=== PATIENT | male | born 1980 | race Caucasian/White ===

== ENCOUNTER 2017-08-04 13:07 | Emergency (ER) | payer OTHER ==
[~2017-08-04] VITALS: Ht 185.4 cm; Wt 121.7 kg
[~2017-08-04 13:07] MED LIST: CLIN1CAP5 PO; LORTA5 PO; SULF1TAB47 PO; Z.0.NO CURRENT MEDS
[2017-08-04] MEDS ORDERED: IOHEXOL 350 MG/ML 10 ML VIAL (for RAD DIAG) IVCONTRAST ONE ×2 (13:08→15:15)
[2017-08-04 13:16] VITALS: BP 158/88; PULSE 105; RESP 20; TEMP 99.1; O2SAT 98
[2017-08-04 14:40] LABS: AUTOMATED NEUTROPHIL # 7.1 TH/MM3 (1.8-7.7); BASOPHIL # 0.3 TH/MM3 (0-0.2); BASOPHIL % 3.4 % (0.0-2.0); EOSINOPHIL # 0.1 TH/MM3 (0-0.4); EOSINOPHIL % 0.6 % (0.0-4.0); HEMATOCRIT 47.6 % (39.0-51.0); HEMO FLAGS DIFF FINAL; LYMPH % 20.8 % (9.0-44.0); LYMPHOCYTE # 2.1 TH/MM3 (1.0-4.8); MEAN CELL VOLUME 88.2 FL (80.0-100.0); MEAN CORPUSCULAR HEMOGLOBIN 30.6 PG (27.0-34.0); MEAN CORPUSCULAR HGB CONC 34.6 % (32.0-36.0); MONO % 6.1 % (0.0-8.0); NEUT % 69.1 % (16.0-70.0); PLATELET COUNT 161 TH/MM3 (150-450); RED BLOOD COUNT 5.39 MIL/MM3 (4.50-5.90); RED CELL DISTRIBUTION WIDTH 11.9 % (11.6-17.2); WHITE BLOOD COUNT 10.1 TH/MM3 (4.0-11.0)
[2017-08-04 14:49] LABS: CHLORIDE 99 MEQ/L (98-107); POTASSIUM 3.1 MEQ/L (3.5-5.1); SODIUM (NA) 136 MEQ/L (136-145)
--- NOTE | 2017-08-04 14:53 | PD ---
HPI Chief Complaint: ENT Complaint Time Seen by Provider: 14:06 Travel History International Travel<30 days: No Contact w/Intl Traveler<30days: No Traveled to known affect area: No History of Present Illness HPI This is a 36-year-old male who presents to the emergency department with 3 days of increasing swelling of his left ear, constant, severe associated with some yellow drainage and moderate severity pain. He has a history of MRSA and has had a couple ear infections in different parts of his body but never his ear before. He denies any fevers or chills. He denies any history of IV drug use. PFSH Past Medical History Diminished Hearing: No Influenza Vaccination: No Past Surgical History Appendectomy: Yes Social History Alcohol Use: Yes (soc) Tobacco Use: No Substance Use: No Allergies-Medications (Allergen,Severity, Reaction): Coded Allergies: cat dander (Unverified Allergy, Severe, Itching, 08/04/17) *MDRO Multi-Drug Resistant Organism (Verified Allergy, Unknown, 08/04/17) MRSA Uncoded Allergies: [employer] ANT[employer]IC OINTMENT WITH PAIN RELIEF (Adverse Reaction, Severe, REDNESS & INFLAMMATION, 10/23/12) SUN (Adverse Reaction, Unknown, HIVES, 07/05/17) Reported Meds & Prescriptions Reported Meds & Active Scripts Active No Active Prescriptions or Reported Medications Review of Systems Except as stated in HPI: all other systems reviewed are Neg Physical Exam Narrative GENERAL:Well appearing, no acute distress SKIN: Focused skin assessment warm and dry. HEAD: Atraumatic. Normocephalic. EYES: Pupils equal and round. No injection or drainage. ENT: Impressive swelling of the left auricle with a fluctuant area with some scant purulent drainage superior to the bishop helix. There is erythema and swelling of the entire auricle and there is some tenderness of the mastoid. Tympanic membrane is normal in appearance and the ear canal is normal. NECK: Trachea midline. CARDIOVASCULAR: Regular rate and rhythm. No murmur appreciated. RESPIRATORY: Clear to auscultation. Breath sounds equal bilaterally. GASTROINTESTINAL: Abdomen soft, non-tender, nondistended. MUSCULOSKELETAL: No obvious deformities. NEUROLOGICAL: Awake and alert. No obvious cranial nerve deficits. Moving all extremities. PSYCHIATRIC: Appropriate mood and affect; insight and judgment normal. Data Data Last Documented VS Vital Signs Date Time Temp Pulse Resp B/P (MAP) Pulse Ox O2 Delivery O2 Flow Rate FiO2 08/04/17 13:16 99.1 105 20 158/88 (111) 98 Orders Orders Complete Blood Count With Diff (08/04/17 14:11) Comprehensive Metabolic Panel (08/04/17 14:11) ^ Insert Iv (08/04/17 14:11) Ct Temporal Bone W Iv Contrast (08/04/17 ) Labs Laboratory Tests Test 08/04/17 14:28 White Blood Count 10.1 TH/MM3 Red Blood Count 5.39 MIL/MM3 Hemoglobin 16.5 GM/DL Hematocrit 47.6 % Mean Corpuscular Volume 88.2 FL Mean Corpuscular Hemoglobin 30.6 PG Mean Corpuscular Hemoglobin Concent 34.6 % Red Cell Distribution Width 11.9 % Platelet Count 161 TH/MM3 Mean Platelet Volume 7.9 FL Neutrophils (%) (Auto) 69.1 % Lymphocytes (%) (Auto) 20.8 % Monocytes (%) (Auto) 6.1 % Eosinophils (%) (Auto) 0.6 % Basophils (%) (Auto) 3.4 % Neutrophils # (Auto) 7.1 TH/MM3 Lymphocytes # (Auto) 2.1 TH/MM3 Monocytes # (Auto) 0.6 TH/MM3 Eosinophils # (Auto) 0.1 TH/MM3 Basophils # (Auto) 0.3 TH/MM3 CBC Comment DIFF FINAL Differential Comment Blood Urea Nitrogen 4 MG/DL Creatinine 0.61 MG/DL Random Glucose 228 MG/DL Total Protein 8.1 GM/DL Albumin 3.6 GM/DL Calcium Level 8.8 MG/DL Alkaline Phosphatase 90 U/L Aspartate Amino Transf (AST/SGOT) 45 U/L Alanine Aminotransferase (ALT/SGPT) 78 U/L Total Bilirubin 1.2 MG/DL Sodium Level 136 MEQ/L Potassium Level 3.1 MEQ/L Chloride Level 99 MEQ/L Carbon Dioxide Level 27.5 MEQ/L Anion Gap 10 MEQ/L Estimat Glomerular Filtration Rate 148 ML/MIN [facility] Medical Decision Making Medical Screen Exam Complete: Yes Emergency Medical Condition: Yes Interpretation(s) Temperature is 99.1, tachycardic, hypertensive No leukocytosis Hypokalemia Hyperglycemia Differential Diagnosis Mastoiditis, abscess, sepsis Narrative Course This is a 36-year-old male who presents to the emergency department with swelling of his left ear. On exam he has what appears to be an abscess immediately superior to the bishop helix. He also has some tenderness along the mastoid process. Labs are obtained which are reassuring with no leukocytosis. CT will be obtained to evaluate for underlying mastoiditis or deeper space infection. If reassuring I think we should discuss with ear nose and throat incision and drainage. Scripts No Active Prescriptions or Reported Meds Kirsten Mathias MD Aug 04, 2017 14:53
[2017-08-04 14:54] LABS: ANION GAP 10 MEQ/L (5-15); BICARBONATE 27.5 MEQ/L (21.0-32.0); BLOOD UREA NITROGEN 4 MG/DL (7-18)
[2017-08-04 14:57] LABS: ALT (GPT) 78 U/L (12-78); AST (GOT) 45 U/L (15-37); GLOMERULAR FILTRATION RATE 148 ML/MIN (>89)
[2017-08-04 14:58] LABS: TOTAL BILIRUBIN ADULT 1.2 MG/DL (0.2-1.0)
[2017-08-04 15:00] LABS: ALKALINE PHOSPHATASE 90 U/L (45-117)
[2017-08-04] MEDS ORDERED: KETOROLAC TROMETHAMINE 30 MG/ML (IVP) VIAL IV PUSH ONE (16:00)
--- NOTE | 2017-08-04 16:11 | PD ---
Physical Exam Narrative Received sign out from previous team to follow up CT scan. 36yo M with history of MRSA here with swelling and pain in left ear for 3 days. There is diffuse edema and erythema in left helix. No edema in external ear canal. TM wnl. It is earlobe sparing. Labs reviewed, no leukocytosis. Mild hypokalemia at 3.1, replaced orally. Glucose elevated at 228. CT temporal bone showed diffuse soft tissue thickening of external auditory canal and base of the ear. No focal drainable abscess is evident. Findings would suggest an external otitis. I discussed the case with ENT nurse monitoring Dr. Laird and he said that it sounds like chondritis and recommends cipro 500mg BID and medrol dose bree and follow up with him as outpatient in the office. I gave pt the first dose of cipro here. He agrees with plan. Return precautions given. Data Data Last Documented VS Vital Signs Date Time Temp Pulse Resp B/P (MAP) Pulse Ox O2 Delivery O2 Flow Rate FiO2 08/04/17 13:16 99.1 105 20 158/88 (111) 98 Orders Orders Complete Blood Count With Diff (08/04/17 14:11) Comprehensive Metabolic Panel (08/04/17 14:11) ^ Insert Iv (08/04/17 14:11) Ct Temporal Bone W Iv Contrast (08/04/17 ) Ketorolac Inj (Toradol Inj) (08/04/17 16:00) Iohexol 350 Inj (Omnipaque 350 Inj) (08/04/17 13:08) Potassium Chloride (Kcl) (08/04/17 16:15) Ciprofloxacin (Cipro) (08/04/17 17:00) Labs Laboratory Tests Test 08/04/17 14:28 White Blood Count 10.1 TH/MM3 Red Blood Count 5.39 MIL/MM3 Hemoglobin 16.5 GM/DL Hematocrit 47.6 % Mean Corpuscular Volume 88.2 FL Mean Corpuscular Hemoglobin 30.6 PG Mean Corpuscular Hemoglobin Concent 34.6 % Red Cell Distribution Width 11.9 % Platelet Count 161 TH/MM3 Mean Platelet Volume 7.9 FL Neutrophils (%) (Auto) 69.1 % Lymphocytes (%) (Auto) 20.8 % Monocytes (%) (Auto) 6.1 % Eosinophils (%) (Auto) 0.6 % Basophils (%) (Auto) 3.4 % Neutrophils # (Auto) 7.1 TH/MM3 Lymphocytes # (Auto) 2.1 TH/MM3 Monocytes # (Auto) 0.6 TH/MM3 Eosinophils # (Auto) 0.1 TH/MM3 Basophils # (Auto) 0.3 TH/MM3 CBC Comment DIFF FINAL Differential Comment Blood Urea Nitrogen 4 MG/DL Creatinine 0.61 MG/DL Random Glucose 228 MG/DL Total Protein 8.1 GM/DL Albumin 3.6 GM/DL Calcium Level 8.8 MG/DL Alkaline Phosphatase 90 U/L Aspartate Amino Transf (AST/SGOT) 45 U/L Alanine Aminotransferase (ALT/SGPT) 78 U/L Total Bilirubin 1.2 MG/DL Sodium Level 136 MEQ/L Potassium Level 3.1 MEQ/L Chloride Level 99 MEQ/L Carbon Dioxide Level 27.5 MEQ/L Anion Gap 10 MEQ/L Estimat Glomerular Filtration Rate 148 ML/MIN MDM Supervised Visit with NICHOLAS: No Diagnosis Primary Impression: Chondritis Referrals: Alan Laird MD call for appointment Chondritis Patient Instructions: General Instructions Departure Forms: Tests/Procedures Additional Instruction: Please follow up with Dr. Laird as soon as possible. Please take medication as instructed and return to the ED if symptoms worsen. Med/Other Pt SpecificInfo: Prescription(s) given Scripts Acetaminophen (Tylenol) 325 Mg Tab 650 MG PO Q6H Y for PAIN SCALE 1 TO 4, #20 TAB 0 Refills Prov: Beatriz Baca DO 08/04/17 Methylprednisolone Dosepak (Medrol Dosepak) 4 Mg Dspk 4 MG PO DIRECTED, #1 DSPK 0 Refills Per Pharmacist direction Prov: Beatriz Baca DO 08/04/17 Ciprofloxacin (Ciprofloxacin) 500 Mg Tab 500 MG PO BID for Infection for 7 Days, #14 TAB 0 Refills Prov: Beatriz Baca DO 08/04/17 Disposition: 01 DISCHARGE HOME Condition: Stable Beatriz Baca DO Aug 04, 2017 16:11
[2017-08-04] MEDS ORDERED: POTASSIUM CHLORIDE 20 MEQ CONTROLLED RELEASE TAB PO ONE (16:15)
--- NOTE | 2017-08-04 16:17 | RADRPT ---
EXAM DATE/TIME: 08/04/2017 15:15 [place] COMPARISON: No previous studies available for comparison. INDICATIONS : Left ear pain, redness and drainage. Cephalgia. IV CONTRAST: 50 cc Omnipaque 350 (iohexol) IV RADIATION DOSE: 97.43 CTDIvol (mGy) MEDICAL HISTORY : None SURGICAL HISTORY : Appendectomy. ENCOUNTER: Initial ACUITY: 3 days PAIN SCALE: 7/10 LOCATION: Left cranial TECHNIQUE: Volumetric scanning of the temporal bone was performed. Using automated exposure control and adjustm ent of the mA and/or kV according to patient size, radiation dose was kept as low as reasonably achie vable to obtain optimal diagnostic quality images. DICOM format image data is available electronicall y for review and comparison. FINDINGS: OSSICLES: The ossicles are intact. The oval window niche is intact. MASTOID AIR CELLS: Well aerated. No sclerotic or opacified air cells are seen. The aditus is intact. MIDDLE EAR: The epitympanum and hypotympanum are intact. Prussak's space and scutum are intact. The oval and rou nd window is intact. LABYRINTH: The cochlea and semicircular canals are normal in configuration without sclerosis. INTERNAL ACOUSTIC CANAL: Normal in size without erosion. The cerebellar-pontine angle is intact. JUGULAR FOSSA: Normal in size and position. FACIAL CANAL: The tympanic, genu and descending portions are intact. EXTERNAL ACOUSTIC CANAL: The bony and cartilaginous portions are intact. There is fairly diffuse soft tissue thickening of the external auditory canal. No focal abscess is seen. CONCLUSION: 1. Diffuse soft tissue thickening of the external auditory canal and base of the ear. No focal draina ble abscess is evident. Findings would suggest an external otitis. 2. The left temporal bone and internal ear are intact. Flavio Delatorre MD on August 04, 2017 at 16:12 Board Certified Radiologist. This report was verified electronically.
[2017-08-04] MEDS ORDERED: CIPROFLOXACIN 500 MG TAB PO ONE (17:00)
[2017-08-04] MEDS ORDERED: CIPR500T2 PO (17:14)
[2017-08-04] MEDS ORDERED: MEDR4PAK PO (17:14)
[2017-08-04] MEDS ORDERED: TYLE325T PO (17:15)
[2017-08-04 17:17] VITALS: RESP 18
[2017-08-04 17:37] VITALS: BP 144/78
== END 2017-08-04 17:39 | disposition home or self-care (01) ==
LOC: PHED 13:07
DX: H61.032 Chondritis of left external ear (principal)
CPT/HCPCS: 70481; 80053; 85025; 96374; 99285; J1885; Q9967

== ENCOUNTER 2017-08-10 10:55 | Inpatient (IN) | payer OTHER ==
[~2017-08-10] VITALS: Ht 185.4 cm; Wt 127.0 kg
[~2017-08-10 10:55] MED LIST changes: +CIPR500T2 PO; -CLIN1CAP5 PO; -LORTA5 PO; +MEDR4PAK PO; -SULF1TAB47 PO; +TYLE325T PO; -Z.0.NO CURRENT MEDS
[2017-08-10 11:05] VITALS: BP 156/106; PULSE 89; RESP 16; TEMP 98.6; O2SAT 99
[2017-08-10 11:25] VITALS: BP 141/99; PULSE 84; RESP 16; TEMP 98.7; O2SAT 97
--- NOTE | 2017-08-10 11:28 | PD ---
HPI Chief Complaint: Skin Problem Time Seen by Provider: 11:22 Travel History International Travel<30 days: No Contact w/Intl Traveler<30days: No Traveled to known affect area: No History of Present Illness HPI This is a 36-year-old male who presents today with complaints of worsening swelling and pain and redness of his left ear. She was seen previously and diagnosed with an outer ear infection. He was started on ciprofloxacin. He reports that he thought initially got better however last several days and worse. He reports it's gotten more inflamed, swollen and now he has drainage from the posterior ear as well as the inner ear. There is no reported fevers, chills. There is no reported stiff neck. There is no reported photophobia. He does have history of MRSA infection. He was started on ciprofloxacin at the recommendation of the ENT physician. PFSH Past Medical History Diminished Hearing: No ?: Not Past Surgical History Appendectomy: Yes Social History Alcohol Use: Yes (soc) Tobacco Use: No Substance Use: No Allergies-Medications (Allergen,Severity, Reaction): Coded Allergies: cat dander (Unverified Allergy, Severe, Itching, 08/04/17) *MDRO Multi-Drug Resistant Organism (Verified Allergy, Unknown, 08/04/17) MRSA Uncoded Allergies: [employer] ANT[employer]IC OINTMENT WITH PAIN RELIEF (Adverse Reaction, Severe, REDNESS & INFLAMMATION, 10/23/12) SUN (Adverse Reaction, Unknown, HIVES, 07/05/17) Reported Meds & Prescriptions Reported Meds & Active Scripts Active Tylenol (Acetaminophen) 325 Mg Tab 650 Mg PO Q6H PRN Medrol Dosepak (Methylprednisolone) 4 Mg Dspk 4 Mg PO DIRECTED Per Pharmacist direction Ciprofloxacin (Ciprofloxacin HCl) 500 Mg Tab 500 Mg PO BID 7 Days Review of Systems Except as stated in HPI: all other systems reviewed are Neg General / Constitutional: No: Fever, Chills HENT: Positive: Ear Discharge, Earache, No: Headaches, Neck Stiffness, Neck Pain Cardiovascular: No: Chest Pain or Discomfort, Palpitations Respiratory: No: Cough, Shortness of Breath Gastrointestinal: No: Nausea, Vomiting, Abdominal Pain Genitourinary: No: Incontinence Musculoskeletal: No: Weakness, Pain Neurologic: No: Weakness, Dizziness, Headache, Sensory Disturbance Physical Exam Narrative GENERAL: Well-developed well-nourished male with obvious redness to his left kortney-auricular area and swollen left ear. SKIN: Focused skin assessment warm/dry. HEAD: Atraumatic. Normocephalic. EYES: Pupils equal and round. No scleral icterus. No injection or drainage. ENT: No nasal bleeding or discharge. Mucous membranes pink and moist. Patient has edematous left ear that is red. There is drainage in the posterior outer ear as well as in her ear. It is tender to the touch. NECK: Trachea midline. No JVD. CARDIOVASCULAR: Regular rate and rhythm. No murmur appreciated. RESPIRATORY: No accessory muscle use. Clear to auscultation. Breath sounds equal bilaterally. GASTROINTESTINAL: Abdomen soft, non-tender, nondistended. Hepatic and splenic margins not palpable. MUSCULOSKELETAL: No obvious deformities. No clubbing. No cyanosis. No edema. NEUROLOGICAL: Awake and alert. No obvious cranial nerve deficits. Motor grossly within normal limits. Normal speech. PSYCHIATRIC: Appropriate mood and affect; insight and judgment normal. Data Data Last Documented VS Vital Signs Date Time Temp Pulse Resp B/P (MAP) Pulse Ox O2 Delivery O2 Flow Rate FiO2 08/10/17 11:05 98.6 89 16 156/106 (123) 99 MDM Medical Decision Making Medical Screen Exam Complete: Yes Emergency Medical Condition: Yes Differential Diagnosis Cellulitis versus mastoiditis versus filled outpatient oral antibiotic treatment. Narrative Course 36-year-old male with a history of previous MRSA, presents today with complaints of worsening pain, swelling, drainage from his left ear. The patient has obvious cellulitis of the left ear including the periauricular area. There is drainage noted. This is been cultured as well as blood cultures. He's been started on vancomycin. He'll be admitted to the hospital for failed outpatient antibiotic treatment. There is a call out to the [facility] hospitalist service. Diagnosis Primary Impression: Cellulitis of left ear Additional Impression: failed outpatient antibiotics. Damian Plascencia MD Aug 10, 2017 11:28
[2017-08-10] MEDS ORDERED: VANCOMYCIN INJ 1,000 MG in SODIUM CHLOR 0.9% 250 ML INJ 250 ML IV ONE (11:30)
[2017-08-10 11:52] LABS: AUTOMATED NEUTROPHIL # 10.4 TH/MM3 (1.8-7.7); BASOPHIL # 0.2 TH/MM3 (0-0.2); BASOPHIL % 1.8 % (0.0-2.0); EOSINOPHIL % 0.3 % (0.0-4.0); LYMPH % 13.3 % (9.0-44.0); LYMPHOCYTE # 1.7 TH/MM3 (1.0-4.8); MEAN CELL VOLUME 88.3 FL (80.0-100.0); MEAN CORPUSCULAR HEMOGLOBIN 29.7 PG (27.0-34.0); MEAN CORPUSCULAR HGB CONC 33.6 % (32.0-36.0); MONO % 4.5 % (0.0-8.0); NEUT % 80.1 % (16.0-70.0); PLATELET COUNT 238 TH/MM3 (150-450); RED BLOOD COUNT 5.55 MIL/MM3 (4.50-5.90); RED CELL DISTRIBUTION WIDTH 12.2 % (11.6-17.2); WHITE BLOOD COUNT 12.9 TH/MM3 (4.0-11.0)
[2017-08-10 11:53] LABS: HEMO FLAGS DIFF FINAL
[2017-08-10 12:00] LABS: POTASSIUM 3.6 MEQ/L (3.5-5.1)
[2017-08-10] MEDS ORDERED: ONDANSETRON HCL 4 MG/2 ML VIAL IVP ONE (12:00)
[2017-08-10] MEDS ORDERED: HYDROmorphone HCL PF 1 MG/ML VIAL IVS ONE (12:00)
[2017-08-10 12:03] LABS: BICARBONATE 25.8 MEQ/L (21.0-32.0)
[2017-08-10] MEDS ORDERED: NALOXONE HCL 0.4 MG/ML AMP IV PUSH PRN (12:30)
[2017-08-10 12:54] VITALS: BP 166/102
[2017-08-10 14:10] VITALS: BP 145/79; PULSE 78; RESP 17; TEMP 98; O2SAT 96
[2017-08-10] MEDS ORDERED: HYDROmorphone HCL PF 1 MG/ML VIAL IV PUSH ONE (14:30)
[2017-08-10] MEDS ORDERED: KETOROLAC TROMETHAMINE 60 MG/2 ML (IM) VIAL IM PRN (14:30)
[2017-08-10 16:00] VITALS: BP 143/79; PULSE 80; RESP 18; TEMP 97.7; O2SAT 98
[2017-08-10] MEDS ORDERED: VANCOMYCIN INJ 1,000 MG in SODIUM CHLOR 0.9% 250 ML INJ 250 ML IV SCH (16:00)
[2017-08-10] MEDS ORDERED: SODIUM CHLOR 0.9% 1000 ML INJ 1,000 ML IV ONE (16:00)
[2017-08-10] MEDS ORDERED: Vancomycin Consult Pharmacy 1 EA OTHER SCH (16:00)
--- NOTE | 2017-08-10 16:03 | HHI.HP ---
HPI Service [facility] Primary Care Physician No Primary Care Physician Admission Diagnosis left ear cellulits, failed outpatient abx, uncontrolled hyperglycemi Diagnoses: Chief Complaint: Left ear pain Travel History International Travel<30 Days: No Contact w/Intl Traveler <30 Da: No Traveled to Known Affected Are: No History of Present Illness Patient is a very pleasant 36-year-old gentleman with minimal past medical history who comes in complaining of at least 10 days of left ear pain. He did have outpatient procedure for ciprofloxacin which she took all but 1 pill. He came here for evaluation because increased pain, swelling and tenderness of the ear. The ears grossly red and beefy and there is some edematous fluctuance underneath the ear lobe and in the posterior or particular area. Patient has some lymphadenopathy in the cervical chains and the ear is with associated 10 out of 10 pain. The pain is improved with Dilaudid. Patient admitted to the hospital due to increased changes and likely a rectal abscess and X otitis externa. Review of Systems Constitutional: DENIES: Diaphoretic episodes, Fatigue, Fever, Weight gain, Weight loss, Chills, Dizziness, Change in appetite, Night Sweats Ears, nose, mouth, throat: COMPLAINS OF: Ear Pain, DENIES: Tinnitus, Hearing loss, Vertigo, Nasal discharge, Oral lesions, Throat pain, Hoarseness, Running Nose, Epistaxis, Sinus Pain, Toothache, Odynophagia Cardiovascular: DENIES: Chest pain, Palpitations, Syncope, Dyspnea on Exertion , PND, Lower Extremity Edema, Orthopnea, Claudication Gastrointestinal: DENIES: Abdominal pain, Black stools, Bloody stools, Constipation, Diarrhea, Nausea, Vomiting, Difficulty Swallowing, Anorexia Genitourinary: DENIES: Sexual dysfunction, Urinary frequency, Urinary incontinence, Urgency, Hematuria, Dysuria, Nocturia, Penile Discharge, Testicular Pain, Testicular Swelling Musculoskeletal: DENIES: Joint pain, Muscle aches, Stiffness, Joint Swelling, Back pain, Neck pain Integumentary: DENIES: Abnormal pigmentation, Nail changes, Pruritus, Rash Hematologic/lymphatic: DENIES: Bruising, Lymphadenopathy Immunologic/allergic: DENIES: Eczema, Urticaria Neurologic: DENIES: Abnormal gait, Headache, Localized weakness, Paresthesias, Seizures, Speech Problems, Tremor, Poor Balance Psychiatric: DENIES: Anxiety, Confusion, Mood changes, Depression, Hallucinations, Agitation, Suicidal Ideation, Homicidal Ideation, Delusions Except as stated in HPI: all other systems reviewed are Neg Past Family Social History Past Medical History Denies Past Surgical History appendectomy Reported Medications reviewed in the medical record, recent Cipro Allergies: Coded Allergies: cat dander (Unverified Allergy, Severe, Itching, 08/10/17) *MDRO Multi-Drug Resistant Organism (Verified Allergy, Unknown, 08/10/17) MRSA Uncoded Allergies: [employer] ANT[employer] OINTMENT WITH PAIN RELIEF (Adverse Reaction, Severe, REDNESS & INFLAMMATION, 08/10/17) . SUN (Adverse Reaction, Unknown, HIVES, 08/10/17) . Active Ordered Medications Reviewed in the medical record Family History Mother is healthy, father had melanoma and past Physical Exam Vital Signs Vital Signs Date Time Temp Pulse Resp B/P (MAP) Pulse Ox O2 Delivery O2 Flow Rate FiO2 08/10/17 15:44 20 08/10/17 14:10 98.0 78 17 145/79 (101) 96 08/10/17 12:54 78 16 166/102 (123) 97 08/10/17 12:46 16 08/10/17 11:25 16 08/10/17 11:25 98.7 84 16 141/99 (113) 97 Room Air 08/10/17 11:05 98.6 89 16 156/106 (123) 99 Physical Exam GENERAL: This is a well-nourished, well-developed patient, in no apparent distress. SKIN: No rashes, ecchymoses or lesions. Cool and dry. HEAD: Atraumatic. Normocephalic. No temporal or scalp tenderness. EYES: Pupils equal round and reactive. Extraocular motions intact. No scleral icterus. No injection or drainage. ENT: Left ear 2 times normal size, beefy-red, with posterior nodularity and edematous fluctuance grossly tender. Nose without bleeding, purulent drainage or septal hematoma. Throat without erythema, tonsillar hypertrophy or exudate. Uvula midline. Airway patent. NECK: Trachea midline. No JVD or lymphadenopathy. Supple, nontender, no meningeal signs. CARDIOVASCULAR: Regular rate and rhythm without murmurs, gallops, or rubs. RESPIRATORY: Clear to auscultation. Breath sounds equal bilaterally. No wheezes , rales, or rhonchi. GASTROINTESTINAL: Abdomen soft, non-tender, nondistended. No hepato-splenomegaly , or palpable masses. No guarding. MUSCULOSKELETAL: Extremities without clubbing, cyanosis, or edema. No joint tenderness, effusion, or edema noted. No calf tenderness. Negative Homans sign bilaterally. NEUROLOGICAL: Awake and alert. Cranial nerves II through XII intact. Motor and sensory grossly within normal limits. Five out of 5 muscle strength in all muscle groups. Normal speech. Laboratory Laboratory Tests Test 08/10/17 11:45 08/10/17 11:52 White Blood Count 12.9 Red Blood Count 5.55 Hemoglobin 16.5 Hematocrit 49.0 Mean Corpuscular Volume 88.3 Mean Corpuscular Hemoglobin 29.7 Mean Corpuscular Hemoglobin Concent 33.6 Red Cell Distribution Width 12.2 Platelet Count 238 Mean Platelet Volume 7.6 Neutrophils (%) (Auto) 80.1 Lymphocytes (%) (Auto) 13.3 Monocytes (%) (Auto) 4.5 Eosinophils (%) (Auto) 0.3 Basophils (%) (Auto) 1.8 Neutrophils # (Auto) 10.4 Lymphocytes # (Auto) 1.7 Monocytes # (Auto) 0.6 Eosinophils # (Auto) 0.0 Basophils # (Auto) 0.2 CBC Comment DIFF FINAL Differential Comment Blood Urea Nitrogen 9 Creatinine 0.69 Random Glucose 280 Calcium Level 8.9 Sodium Level 135 Potassium Level 3.6 Chloride Level 101 Carbon Dioxide Level 25.8 Anion Gap 8 Estimat Glomerular Filtration Rate 128 Lactic Acid Level 1.5 Date/Time Source Procedure Growth Status 08/10/17 11:52 Blood Peripheral Aerobic Blood Culture Pending Received 08/10/17 11:52 Blood Peripheral Anaerobic Blood Culture Pending Received 08/10/17 11:55 Wound Other Gram Stain Pending Worksheet 08/10/17 11:55 Wound Other Wound Culture Pending Worksheet Result Diagram: 08/10/17 1145 08/10/17 1145 Caprini VTE Risk Assessment Caprini VTE Risk Assessment: No/Low Risk (score <= 1) Caprini Risk Assessment Model Point Value = 1 Point Value = 2 Point Value = 3 Point Value = 5 Age 41-60 Minor surgery BMI > 25 kg/m2 Swollen legs Varicose veins or History of unexplained or recurrent spontaneous Oral contraceptives or hormone replacement Sepsis (< 1 month) Serious lung disease, including pneumonia (< 1 month) Abnormal pulmonary function Acute myocardial infarction Congestive heart failure (< 1 month) History of inflammatory bowel disease Medical patient at bed rest Age 61-74 Arthroscopic surgery Major open surgery (> 45 min) Laparoscopic surgery (> 45 min) Malignancy Confined to bed (> 72 hours) Immobilizing plaster cast Central venous access Age >= 75 History of VTE Family history of VTE Factor V Leiden Prothrombin [id number] Lupus anticoagulant Anticardiolipin antibodies Elevated serum homocysteine Heparin-induced thrombocytopenia Other congenital or acquired thrombophilia Stroke (< 1 month) Elective arthroplasty Hip, pelvis, or leg fracture Acute spinal cord injury (< 1 month) Prophylaxis Regimen Total Risk Factor Score Risk Level Prophylaxis Regimen 0-1 Low Early ambulation 2 Moderate Order ONE of the following: *Sequential Compression Device (SCD) *Heparin 5000 units SQ BID 3-4 Higher Order ONE of the following medications: *Heparin 5000 units SQ TID *Enoxaparin/Lovenox 40 mg SQ daily (WT < 150 kg, CrCl > 30 mL/min) *Enoxaparin/Lovenox 30 mg SQ daily (WT < 150 kg, CrCl > 10-29 mL/min) *Enoxaparin/Lovenox 30 mg SQ BID (WT < 150 kg, CrCl > 30 mL/min) AND/OR *Sequential Compression Device (SCD) 5 or more Highest Order ONE of the following medications: *Heparin 5000 units SQ TID (Preferred with Epidurals) *Enoxaparin/Lovenox 40 mg SQ daily (WT < 150 kg, CrCl > 30 mL/min) *Enoxaparin/Lovenox 30 mg SQ daily (WT < 150 kg, CrCl > 10-29 mL/min) *Enoxaparin/Lovenox 30 mg SQ BID (WT < 150 kg, CrCl > 30 mL/min) AND *Sequential Compression Device (SCD) Assessment and Plan Problem List: (1) Cellulitis of left ear ICD Code: H60.12 - Cellulitis of left external ear Status: Acute Plan: Rule out abscess, continue with vancomycin Concerning for abscess development. ENT today and if possible I&D pain control IV dialuadid, toradol (2) Hyperglycemia ICD Code: R73.9 - Hyperglycemia, unspecified Plan: Likely patient has underlying in diabetes mellitus type 2, previous and diagnosed, will check hemoglobin A1c, continue surveillance Physician Certification 2 Midnight Certification Type: Admission for Inpatient Services Order for Inpatient Services The services are ordered in accordance with Medicare regulations or non- Medicare payer requirements, as applicable. In the case of services not specified as inpatient-only, they are appropriately provided as inpatient services in accordance with the 2-midnight benchmark. Estimated LOS (days): 3 3 days is the estimated time the patient will need to remain in the hospital, assuming treatment plan goals are met and no additional complications. Post-Hospital Plan: Home Elsie Coyle MD Aug 10, 2017 16:03
[2017-08-10] MEDS: CLINDAMYCIN INJ 600 MG in SODIUM CHLORIDE 0.9% INJ 100 ML IV SCH (17:02)
[2017-08-10] MEDS: HYDROmorphone HCL PF 2 MG/ML VIAL IVS PRN ×2 (17:03→20:54)
[2017-08-10] MEDS ORDERED: LIDOCAINE 1%/EPINEPHrine 1:100,000 SOLN 30 ML VIAL ONE (18:05)
[2017-08-10] MEDS ORDERED: HYDROmorphone HCL PF 2 MG/ML VIAL IV ONE (19:00)
[2017-08-10] MEDS ORDERED: LIDOCAINE 1%/EPINEPHrine 1:100,000 SOLN 30 ML VIAL OTHER ONE (19:00)
[2017-08-10 20:00] VITALS: BP 164/110; PULSE 89; RESP 20; TEMP 97.6; O2SAT 97
[2017-08-10] MEDS: MUPIROCIN 2% OINT 22 GM TUBE TOPICAL SCH (20:54)
[2017-08-10] MEDS: SODIUM CHLORIDE 0.9% FLUSH 10 ML FLUSH IV FLUSH SCH (20:54)
[2017-08-10 21:26] LABS: HEMOGLOBIN A1a 1.5 %; HEMOGLOBIN Ao 76.6 %; HEMOGLOBIN F 1.7 %; HEMOGLOBIN LA1C 3.2 %
[2017-08-10] MEDS: VANCOMYCIN INJ 1,500 MG in SODIUM CHLORID 0.9% 500 ML INJ 500 ML IV SCH (21:54)
[2017-08-11] VITALS: BP 161/105; PULSE 90; RESP 20; TEMP 98.1; O2SAT 96
[2017-08-11] MEDS: HYDROmorphone HCL PF 2 MG/ML VIAL IVS PRN ×6 (01:05→22:40)
[2017-08-11] MEDS: CLINDAMYCIN INJ 600 MG in SODIUM CHLORIDE 0.9% INJ 100 ML IV SCH ×4 (01:05→23:50)
[2017-08-11 04:00] VITALS: BP 145/102; PULSE 86
[2017-08-11 07:15] LABS: AUTOMATED NEUTROPHIL # 8.4 TH/MM3 (1.8-7.7); BASOPHIL # 0.1 TH/MM3 (0-0.2); BASOPHIL % 0.9 % (0.0-2.0); EOSINOPHIL # 0.1 TH/MM3 (0-0.4); EOSINOPHIL % 0.8 % (0.0-4.0); HEMATOCRIT 41.2 % (39.0-51.0); HEMO FLAGS DIFF FINAL; LYMPHOCYTE # 1.5 TH/MM3 (1.0-4.8); MEAN CELL VOLUME 89.7 FL (80.0-100.0); MEAN CORPUSCULAR HEMOGLOBIN 31.2 PG (27.0-34.0); MEAN CORPUSCULAR HGB CONC 34.8 % (32.0-36.0); MONO % 5.3 % (0.0-8.0); PLATELET COUNT 199 TH/MM3 (150-450); RED BLOOD COUNT 4.59 MIL/MM3 (4.50-5.90); RED CELL DISTRIBUTION WIDTH 12.3 % (11.6-17.2); WHITE BLOOD COUNT 10.7 TH/MM3 (4.0-11.0)
[2017-08-11 07:24] LABS: POTASSIUM 3.5 MEQ/L (3.5-5.1)
[2017-08-11 07:31] LABS: BICARBONATE 27.5 MEQ/L (21.0-32.0)
[2017-08-11 08:00] VITALS: BP 151/105; PULSE 90; RESP 18; TEMP 96.8; O2SAT 97
--- NOTE | 2017-08-11 08:39 | MB ---
cc: REJI LAUREN MD DATE OF CONSULTATION 08/10/17 CHIEF COMPLAINT Left ear infection. HISTORY OF PRESENT ILLNESS The salvador is a pleasant 36-year-old male with a 10 day worsening of left ear pain. He was previously seen for ear infection started on ciprofloxacin. He is taking the medications for almost 10 days with no definitive improvement. He does have a history of MRSA infection. Examination revealed a left swollen postauricular infection. There was diffuse swelling throughout the entire ear. The patient notes that he has had swelling in the past around the ear as well. No history of trauma to the ear or relapsing polychondritis in the past. The other head, neck exam was essentially benign. After prepping the left ear and injecting local anesthesia, a __18 gauge needle was used to aspirate approximately 4 cc of marcial purulence with immediate resolution of swelling and symptoms. The mastoid bone did not feel doughy at all. Fluid sent for culture and sensitivity. ASSESSMENT Auricular abscess. PLAN Recommend the patient continue the vancomycin that was started while awaiting culture results. Also recommend the patient use mupirocin ointment copiously over the ear twice a day and make sure that sugar levels are controlled as well. Available for further consultation. Reji Lauren MD CCP/EO /7:07 PM /8:29 AM MTDD
[2017-08-11] MEDS: MUPIROCIN 2% OINT 22 GM TUBE TOPICAL SCH ×2 (09:00→20:01)
[2017-08-11] MEDS: SODIUM CHLORIDE 0.9% FLUSH 10 ML FLUSH IV FLUSH SCH ×2 (09:08→20:01)
[2017-08-11] MEDS: VANCOMYCIN INJ 1,500 MG in SODIUM CHLORID 0.9% 500 ML INJ 500 ML IV SCH ×2 (10:24→21:33)
[2017-08-11 11:52] VITALS: BP 146/98; PULSE 85; RESP 20; TEMP 96.3; O2SAT 96
--- NOTE | 2017-08-11 12:41 | HHI.PR ---
Subjective Remarks PATIENT SEEN AND EVALUATED FOR LEFT PERIAURICULAR ABSCESS, NEW ONSET DIABETES AND LIKELY HYPERTENSION. Status post I&D at the bedside with about 5 mL of marcial pus per ENT. Cultures are pending. Patient tolerating IV vancomycin and clindamycin without difficulty. Increased swelling on the left side of the face today. Hemoglobin A1c 11.6 Objective Vitals Vital Signs Date Time Temp Pulse Resp B/P (MAP) Pulse Ox O2 Delivery O2 Flow Rate FiO2 08/11/17 11:52 96.3 85 20 146/98 (114) 96 08/11/17 08:00 96.8 90 18 151/105 (120) 97 08/11/17 05:33 18 08/11/17 04:00 86 145/102 (116) 08/11/17 00:00 98.1 90 20 161/105 (123) 96 08/10/17 20:00 97.6 89 20 164/110 (128) 97 08/10/17 16:00 97.7 80 18 143/79 (100) 98 08/10/17 15:44 20 08/10/17 14:10 98.0 78 17 145/79 (101) 96 08/10/17 12:54 78 16 166/102 (123) 97 08/10/17 12:46 16 I/O 08/10/17 08/10/17 08/10/17 08/11/17 08/11/17 08/11/17 07:00 15:00 23:00 07:00 15:00 23:00 Intake Total 250 ml 1560 ml 644 ml Balance 250 ml 1560 ml 644 ml Intake Oral 1560 ml IV Total 250 ml 644 ml # Voids 7 # Bowel Movements 0 Result Diagram: 08/11/1752708/11/17527 Objective Remarks Left face grossly swollen with beefy erythematous ear and perirectal or tenderness, cervical chain lymphadenopathy appreciated GENERAL: This is a well-nourished, well-developed patient, in no apparent distress. CARDIOVASCULAR: Regular rate and rhythm without murmurs, gallops, or rubs. RESPIRATORY: Clear to auscultation. Breath sounds equal bilaterally. No wheezes , rales, or rhonchi. GASTROINTESTINAL: Abdomen soft, non-tender, nondistended. Normal active bowel sounds MUSCULOSKELETAL: Extremities without clubbing, cyanosis, or edema. NEURO: Alert & Oriented x4 to person, place, time, situation. Moves all ext x4 A/P Problem List: (1) Cellulitis of left ear ICD Code: H60.12 - Cellulitis of left external ear Status: Acute Plan: Secondary to abscess and cellulitis, continue empiric vancomycin and clindamycin Follow up cultures from I&D (previous history of MRSA) Continue IV Dilaudid, Toradol and will add Percocet as needed (2) Hyperglycemia ICD Code: R73.9 - Hyperglycemia, unspecified Plan: Patient has type 2 diabetes mellitus, hemoglobin A1c is over 11, continue with sliding scale, diabetic diet and education (3) Elevated BP without diagnosis of hypertension ICD Code: R03.0 - Elevated blood-pressure reading, without diagnosis of hypertension Plan: Patient likely has underlying hypertension, we will add Ti, check EKG Elsie Coyle MD Aug 11, 2017 12:41
[2017-08-11] MEDS ORDERED: DEXTROSE 50% IN WATER 50 ML VIAL(D50) IV PUSH PRN (12:45)
[2017-08-11] MEDS ORDERED: GLUCAGON 1 MG/ML VIAL OTHER PRN (12:45)
[2017-08-11] MEDS: LOSARTAN 50 MG TAB PO SCH (13:30)
[2017-08-11 16:00] VITALS: BP 156/104; PULSE 84; RESP 20; TEMP 98.1; O2SAT 98
[2017-08-11] MEDS: INSULIN ASPART SUPPLEMENTAL SCALE SQ SCH ×2 (16:52→21:00)
[2017-08-11] MEDS: oxyCODONE/ACETAMINOPHEN 7.5 MG/325 MG TAB PO PRN ×2 (16:58→21:33)
[2017-08-11 20:00] VITALS: BP 147/103; PULSE 88; RESP 20; TEMP 99.4; O2SAT 95
[2017-08-12] VITALS: BP 122/82; PULSE 76; RESP 20; TEMP 98.3; O2SAT 97
[2017-08-12] MEDS: HYDROmorphone HCL PF 2 MG/ML VIAL IVS PRN ×5 (02:55→19:44)
[2017-08-12] MEDS: oxyCODONE/ACETAMINOPHEN 7.5 MG/325 MG TAB PO PRN ×3 (04:49→18:44)
[2017-08-12 08:00] VITALS: BP 148/96; PULSE 91; RESP 19; TEMP 97.1; O2SAT 96
[2017-08-12] MEDS: MUPIROCIN 2% OINT 22 GM TUBE TOPICAL SCH ×2 (08:18→19:47)
[2017-08-12] MEDS: LOSARTAN 50 MG TAB PO SCH (08:18)
[2017-08-12] MEDS: SODIUM CHLORIDE 0.9% FLUSH 10 ML FLUSH IV FLUSH SCH ×2 (08:19→19:45)
[2017-08-12] MEDS: CLINDAMYCIN INJ 600 MG in SODIUM CHLORIDE 0.9% INJ 100 ML IV SCH ×2 (08:20→17:08)
[2017-08-12] MEDS: INSULIN ASPART SUPPLEMENTAL SCALE SQ SCH ×4 (08:48→20:45)
[2017-08-12] MEDS ORDERED: PHARMACY ORDERED LAB ONE (09:45)
--- NOTE | 2017-08-12 10:57 | PD.CONS ---
History of Present Illness Service Infectious disease Consult Requested By Dr Rachel Olmos Reason for Consult Left ear cellulitis/ abscess Primary Care Physician No Primary Care Physician Diagnoses: (1) Methicillin resistant Staphylococcus aureus infection (2) Abscess of left external ear (3) Cellulitis of left ear History of Present Illness Patient with a past h/o MRSA started having a swelling of his left ear - about 10 days ago and then he came to ER and was given Cipro but the ear got progressively worse and so came back to ER and was admitted. Patient also noted to have hyperglycemia and has a high Hemoglobin A1C so new onset of Diabetes. Patient has had a past h/o MRSA. Review of Systems Constitutional: COMPLAINS OF: Fever, DENIES: Weight loss, Chills Endocrine: DENIES: Heat/cold intolerance Eyes: DENIES: Diplopia, Eye pain, Double Vision Ears, nose, mouth, throat: COMPLAINS OF: Ear Pain, DENIES: Hearing loss, Odynophagia Respiratory: DENIES: Cough, Sputum production, Shortness of breath Cardiovascular: DENIES: Chest pain, Lower Extremity Edema Gastrointestinal: DENIES: Abdominal pain, Nausea, Vomiting Genitourinary: DENIES: Hematuria, Dysuria Musculoskeletal: DENIES: Joint pain, Joint Swelling, Back pain Integumentary: COMPLAINS OF: Abnormal pigmentation Hematologic/lymphatic: COMPLAINS OF: Lymphadenopathy Immunologic/allergic: DENIES: Urticaria Neurologic: DENIES: Headache, Paresthesias Psychiatric: DENIES: Confusion, Hallucinations Past Family Social History Allergies: Coded Allergies: cat dander (Unverified Allergy, Severe, Itching, 08/10/17) Uncoded Allergies: [employer] ANT[employer]IC OINTMENT WITH PAIN RELIEF (Adverse Reaction, Severe, REDNESS & INFLAMMATION, 08/10/17) . SUN (Adverse Reaction, Unknown, HIVES, 08/10/17) . Past Medical History Past Medical History MRSA infection repeatedly Past Surgical History appendectomy Reported Medications reviewed in the medical record, recent Cipro Allergies: Coded Allergies: cat dander (Unverified Allergy, Severe, Itching, 08/10/17) *MDRO Multi-Drug Resistant Organism (Verified Allergy, Unknown, 08/10/17) MRSA Uncoded Allergies: [employer] ANT[employer]IC OINTMENT WITH PAIN RELIEF (Adverse Reaction, Severe, REDNESS & INFLAMMATION, 08/10/17) . SUN (Adverse Reaction, Unknown, HIVES, 08/10/17) . Active Ordered Medications Reviewed in the medical record Family History Mother is healthy, father had melanoma and past Social History No h/o smoking Works in sales Physical Exam Vital Signs Vital Signs Date Time Temp Pulse Resp B/P (MAP) Pulse Ox O2 Delivery O2 Flow Rate FiO2 08/12/17 08:00 97.1 91 19 148/96 (113) 96 08/12/17 00:00 98.3 76 20 122/82 (95) 97 08/11/17 20:00 99.4 88 20 147/103 (118) 95 08/11/17 16:00 98.1 84 20 156/104 (121) 98 08/11/17 13:55 14 08/11/17 11:52 96.3 85 20 146/98 (114) 96 Physical Exam GENERAL: This is a obese, sitting up in bed SKIN: Erythematous left ear HEAD: Left side of face and left posterior temporal area with swelling EYES: Pupils equal round and reactive. Extraocular motions intact. No scleral icterus. No injection or drainage. ENT: Nose without bleeding, purulent drainage or septal hematoma. Throat without erythema, tonsillar hypertrophy or exudate. Uvula midline. Airway patent. Left ear with significant swelling and redness and abscess in pinna that is draining posteriorly via multiple small openings NECK: Trachea midline. No JVD Left cervical lymphadenopathy and pre auricular lymph node. Supple, nontender, no meningeal signs. CARDIOVASCULAR: Regular rate and rhythm without murmurs, gallops, or rubs. RESPIRATORY: Clear to auscultation. Breath sounds equal bilaterally. No wheezes , rales, or rhonchi. GASTROINTESTINAL: Abdomen soft, non-tender, nondistended. No hepato-splenomegaly , or palpable masses. No guarding. MUSCULOSKELETAL: Extremities without clubbing, cyanosis, or edema. No joint tenderness, effusion, or edema noted. No calf tenderness. Negative Homans sign bilaterally. NEUROLOGICAL: Awake and alert. Cranial nerves II through XII intact. Motor and sensory grossly within normal limits. Five out of 5 muscle strength in all muscle groups. Normal speech. Laboratory Date/Time Source Procedure Growth Status 08/10/17 11:52 Blood Peripheral Aerobic Blood Culture - Preliminary NO GROWTH IN 1 DAY Resulted 08/10/17 11:52 Blood Peripheral Anaerobic Blood Culture - Preliminary NO GROWTH IN 1 DAY Resulted 08/10/17 18:50 Ear Left Gram Stain - Final Complete 08/10/17 18:50 Wound Culture - Final S. Aureus Mrsa Complete Result Diagram: 08/11/1728 08/11/17527 Assessment and Plan Problem List: (1) Abscess of left external ear ICD Codes: H60.02 - Abscess of left external ear Status: Acute Plan: S/p drainage Follow blood cultures Continue IV Vancomycin - pharmacy to dose Since Vancomycin LY is 2 - continue IV Clindamycin (2) Cellulitis of left ear ICD Codes: H60.12 - Cellulitis of left external ear Status: Acute (3) Methicillin resistant Staphylococcus aureus infection ICD Codes: A49.02 - Methicillin resistant Staphylococcus aureus infection, unspecified site (4) New onset type 2 diabetes mellitus ICD Codes: E11.9 - Type 2 diabetes mellitus without complications Rachel Olmos MD Aug 12, 2017 10:57
[2017-08-12] MEDS: VANCOMYCIN INJ 1,500 MG in SODIUM CHLORID 0.9% 500 ML INJ 500 ML IV SCH ×2 (11:02→18:47)
[2017-08-12 12:00] VITALS: BP 137/91; PULSE 79; RESP 20; TEMP 98.1; O2SAT 96
[2017-08-12] MEDS: LACTOBACILLUS ACIDOPHILUS TAB PO SCH ×2 (12:29→17:06)
--- NOTE | 2017-08-12 13:36 | HHI.PR ---
Subjective Remarks Swelling improved some drainage BG requiring Insulin D/w ID Objective Vitals Vital Signs Date Time Temp Pulse Resp B/P (MAP) Pulse Ox O2 Delivery O2 Flow Rate FiO2 08/12/17 12:00 98.1 79 20 137/91 (106) 96 08/12/17 08:00 97.1 91 19 148/96 (113) 96 08/12/17 00:00 98.3 76 20 122/82 (95) 97 08/11/17 20:00 99.4 88 20 147/103 (118) 95 08/11/17 16:00 98.1 84 20 156/104 (121) 98 08/11/17 13:55 14 I/O 08/11/17 08/11/17 08/11/17 08/12/17 08/12/17 08/12/17 07:00 15:00 23:00 07:00 15:00 23:00 Intake Total 644 ml 1948 ml 1168 ml 515 ml 480 ml Balance 644 ml 1948 ml 1168 ml 515 ml 480 ml Intake Oral 1225 ml 960 ml 480 ml IV Total 644 ml 723 ml 208 ml 515 ml # Voids 5 3 3 # Bowel Movements 1 0 0 Result Diagram: 08/11/1752708/11/17527 Objective Remarks Left face grossly swollen with beefy erythematous ear and perirectal or tenderness, cervical chain lymphadenopathy appreciated GENERAL: This is a well-nourished, well-developed patient, in no apparent distress. CARDIOVASCULAR: Regular rate and rhythm without murmurs, gallops, or rubs. RESPIRATORY: Clear to auscultation. Breath sounds equal bilaterally. No wheezes , rales, or rhonchi. GASTROINTESTINAL: Abdomen soft, non-tender, nondistended. Normal active bowel sounds MUSCULOSKELETAL: Extremities without clubbing, cyanosis, or edema. NEURO: Alert & Oriented x4 to person, place, time, situation. Moves all ext x4 A/P Problem List: (1) Cellulitis of left ear ICD Code: H60.12 - Cellulitis of left external ear Status: Acute Plan: Secondary to abscess and cellulitis, continue rx for MRSA vancomycin and clindamycin Continue IV Dilaudid, Toradol and will add Percocet as needed (2) Hyperglycemia ICD Code: R73.9 - Hyperglycemia, unspecified Plan: Patient has type 2 diabetes mellitus, hemoglobin A1c is over 11, continue with sliding scale, diabetic diet and education SSI and add metformin (3) Elevated BP without diagnosis of hypertension ICD Code: R03.0 - Elevated blood-pressure reading, without diagnosis of hypertension Plan: Patient likely has hypertension, we will continue Cozaar, check EKG Discharge Planning мария 1-2 days Elsie Coyle MD Aug 12, 2017 13:36
[2017-08-12 16:00] VITALS: BP 163/112; PULSE 78; RESP 20; TEMP 96.2; O2SAT 97
--- NOTE | 2017-08-12 16:52 | EKG ---
Date Performed: 08/11/2017 Time Performed: 14:38:40 PTAGE: 36 years EKG: Sinus rhythm NORMAL ECG NO PREVIOUS TRACING DOCTOR: Kenyetta Rajan Interpretating Date/Time 08/12/2017 16:50:01
[2017-08-12] MEDS: metFORMIN HCL 500 MG TAB PO SCH (17:06)
[2017-08-12 20:18] VITALS: BP 146/95; PULSE 81; RESP 20; TEMP 99.3; O2SAT 98
[2017-08-13 00:18] VITALS: BP 161/109; PULSE 79; RESP 18; TEMP 98.5; O2SAT 98
[2017-08-13] MEDS: HYDROmorphone HCL PF 2 MG/ML VIAL IVS PRN ×6 (00:20→23:48)
[2017-08-13] MEDS: CLINDAMYCIN INJ 600 MG in SODIUM CHLORIDE 0.9% INJ 100 ML IV SCH ×4 (00:21→23:48)
[2017-08-13] MEDS: oxyCODONE/ACETAMINOPHEN 7.5 MG/325 MG TAB PO PRN ×4 (01:37→21:27)
[2017-08-13] MEDS: VANCOMYCIN INJ 1,500 MG in SODIUM CHLORID 0.9% 500 ML INJ 500 ML IV SCH ×3 (01:48→17:49)
[2017-08-13 08:00] VITALS: BP 165/117; PULSE 71; RESP 20; TEMP 97.6; O2SAT 100
[2017-08-13] MEDS: INSULIN ASPART SUPPLEMENTAL SCALE SQ SCH ×4 (08:00→20:26)
[2017-08-13] MEDS: LOSARTAN 50 MG TAB PO SCH ×3 (08:17→20:22)
[2017-08-13] MEDS: SODIUM CHLORIDE 0.9% FLUSH 10 ML FLUSH IV FLUSH SCH ×2 (08:17→20:22)
[2017-08-13] MEDS: LACTOBACILLUS ACIDOPHILUS TAB PO SCH ×3 (08:17→17:49)
[2017-08-13] MEDS: metFORMIN HCL 500 MG TAB PO SCH ×2 (08:18→17:50)
[2017-08-13] MEDS: MUPIROCIN 2% OINT 22 GM TUBE TOPICAL SCH ×2 (08:19→20:23)
[2017-08-13] MEDS: CARVEDILOL 6.25 MG TAB PO SCH ×2 (10:46→20:22)
[2017-08-13] MEDS: glipiZIDE 5 MG TAB PO SCH (10:50)
[2017-08-13 12:00] VITALS: BP 143/108; PULSE 70; RESP 20; TEMP 96.2; O2SAT 100
[2017-08-13] MEDS ORDERED: GLIP5TAB8 PO (12:47)
[2017-08-13] MEDS ORDERED: METF500T PO (12:47)
[2017-08-13] MEDS ORDERED: GLUCKIT15 (12:47)
--- NOTE | 2017-08-13 12:48 | HHI.DCPOC ---
Discharge Care Plan Diagnosis: (1) New onset type 2 diabetes mellitus (2) Abscess of left external ear Goals to Promote Your Health * To prevent worsening of your condition and complications * To maintain your health at the optimal level Directions to Meet Your Goals Take your medications as prescribed Follow your dietary instruction Follow activity as directed Keep your appointments as scheduled Take your immunizations and boosters as scheduled If your symptoms worsen call your PCP, if no PCP go to Urgent Care Center or Emergency Room Smoking is Dangerous to Your Health. Avoid second hand smoke Call the 24-hour hour crisis hotline for domestic abuse at Elsie Coyle MD Aug 13, 2017 12:48
--- NOTE | 2017-08-13 12:50 | HHI.PR ---
Subjective Remarks Seen today in follow-up for left ear abscess for new onset diabetes. Doing well today. Inflammation and erythema and swelling is much better. Patient blood pressure still uncontrolled. Patient now on glipizide and metformin. Patient's discharge plans discussed with him Objective Vitals Vital Signs Date Time Temp Pulse Resp B/P (MAP) Pulse Ox O2 Delivery O2 Flow Rate FiO2 08/13/17 09:55 18 08/13/17 09:17 20 08/13/17 08:00 97.6 71 20 165/117 (133) 100 08/13/17 00:18 98.5 79 18 161/109 (126) 98 08/12/17 20:18 99.3 81 20 146/95 (112) 98 08/12/17 16:00 96.2 78 20 163/112 (129) 97 I/O 08/12/17 08/12/17 08/12/17 08/13/17 08/13/17 08/13/17 07:00 15:00 23:00 07:00 15:00 23:00 Intake Total 515 ml 584 ml 619 ml 1130 ml Balance 515 ml 584 ml 619 ml 1130 ml Intake Oral 480 ml IV Total 515 ml 104 ml 619 ml 1130 ml # Voids 3 1 1 1 # Bowel Movements 0 Result Diagram: 08/11/17 0528 08/13/17 0722 Objective Remarks Improved erythema and edema of the left ear GENERAL: This is a well-nourished, well-developed patient, in no apparent distress. CARDIOVASCULAR: Regular rate and rhythm without murmurs, gallops, or rubs. RESPIRATORY: Clear to auscultation. Breath sounds equal bilaterally. No wheezes , rales, or rhonchi. GASTROINTESTINAL: Abdomen soft, non-tender, nondistended. Normal active bowel sounds MUSCULOSKELETAL: Extremities without clubbing, cyanosis, or edema. NEURO: Alert & Oriented x4 to person, place, time, situation. Moves all ext x4 A/P Problem List: (1) Cellulitis of left ear ICD Code: H60.12 - Cellulitis of left external ear Status: Acute Plan: Secondary to abscess and cellulitis, continue rx for MRSA vancomycin and clindamycin, likely will benefit from oral antibiotics and we will discuss this with infectious disease Continue oral medicine for pain (2) Hyperglycemia ICD Code: R73.9 - Hyperglycemia, unspecified Plan: Patient has type 2 diabetes mellitus, hemoglobin A1c is over 11, continue with sliding scale, diabetic diet and education SSI and continue metformin, sulfonylurea diabetic teaching completed yesterday (3) Elevated BP without diagnosis of hypertension ICD Code: R03.0 - Elevated blood-pressure reading, without diagnosis of hypertension Plan: Patient likely has hypertension, we will continue Cozaar, add Coreg Baseline EKG within normal limits Discharge Planning home in am po Elsie Choi MD Aug 13, 2017 12:50
[2017-08-13 16:00] VITALS: BP 149/110; PULSE 75; RESP 20; TEMP 96.8; O2SAT 97
[2017-08-13] MEDS ORDERED: VANCOMYCIN TROUGH ONE (17:45)
[2017-08-13 20:58] VITALS: BP 149/103; PULSE 75; RESP 20; TEMP 98.1; O2SAT 98
[2017-08-13] MEDS: SODIUM CHLORIDE 0.9% FLUSH 10 ML FLUSH IV FLUSH PRN (23:48)
[2017-08-14] MEDS: VANCOMYCIN INJ 1,500 MG in SODIUM CHLORID 0.9% 500 ML INJ 500 ML IV SCH ×2 (00:20→10:00)
[2017-08-14 00:28] VITALS: BP 151/105; PULSE 72; RESP 20; TEMP 97.3; O2SAT 97
[2017-08-14] MEDS: oxyCODONE/ACETAMINOPHEN 7.5 MG/325 MG TAB PO PRN ×2 (03:52→08:43)
[2017-08-14] MEDS: HYDROmorphone HCL PF 2 MG/ML VIAL IVS PRN (04:38)
[2017-08-14] MEDS: SODIUM CHLORIDE 0.9% FLUSH 10 ML FLUSH IV FLUSH PRN (04:38)
[2017-08-14] MEDS ORDERED: COZA50TA PO (07:41)
[2017-08-14] MEDS ORDERED: CARV6.25 PO (07:41)
[2017-08-14 08:00] VITALS: BP 137/94; PULSE 67; RESP 18; TEMP 97; O2SAT 98
[2017-08-14] MEDS: INSULIN ASPART SUPPLEMENTAL SCALE SQ SCH (08:00)
[2017-08-14] MEDS: SODIUM CHLORIDE 0.9% FLUSH 10 ML FLUSH IV FLUSH SCH (08:31)
[2017-08-14] MEDS: glipiZIDE 5 MG TAB PO SCH (08:31)
[2017-08-14] MEDS: LOSARTAN 50 MG TAB PO SCH (08:31)
[2017-08-14] MEDS: metFORMIN HCL 500 MG TAB PO SCH (08:31)
[2017-08-14] MEDS: CARVEDILOL 6.25 MG TAB PO SCH (08:31)
[2017-08-14] MEDS: CLINDAMYCIN INJ 600 MG in SODIUM CHLORIDE 0.9% INJ 100 ML IV SCH (08:31)
[2017-08-14] MEDS: LACTOBACILLUS ACIDOPHILUS TAB PO SCH (08:32)
[2017-08-14] MEDS ORDERED: BACT800T5 PO (08:35)
[2017-08-14] MEDS ORDERED: DOXY1TAB6 PO (08:35)
--- NOTE | 2017-08-14 08:38 | HHI.DS ---
Discharge Summary Admission Date Aug 10, 2017 at 12:19 Discharge Date: Aug 14, 2017 Admitting Diagnosis left ear cellulits, failed outpatient abx, uncontrolled hyperglycemi (1) Cellulitis of left ear ICD Code: H60.12 - Cellulitis of left external ear Status: Acute (2) Hyperglycemia ICD Code: R73.9 - Hyperglycemia, unspecified (3) Elevated BP without diagnosis of hypertension ICD Code: R03.0 - Elevated blood-pressure reading, without diagnosis of hypertension Procedures I&D left ear Brief History - From Admission Patient is a very pleasant 36-year-old gentleman with minimal past medical history who comes in complaining of at least 10 days of left ear pain. He did have outpatient procedure for ciprofloxacin which she took all but 1 pill. He came here for evaluation because increased pain, swelling and tenderness of the ear. The ears grossly red and beefy and there is some edematous fluctuance underneath the ear lobe and in the posterior or particular area. Patient has some lymphadenopathy in the cervical chains and the ear is with associated 10 out of 10 pain. The pain is improved with Dilaudid. Patient admitted to the hospital due to increased changes and likely a rectal abscess and X otitis externa. CBC/BMP: 08/11/17 0528 08/13/17 0722 Significant Findings Laboratory Tests Test 08/12/17 10:45 08/13/17 07:22 08/13/17 17:45 Vancomycin Level Trough 4.4 MCG/ML (5.0-10.0) 12.3 MCG/ML (5.0-10.0) Creatinine 0.39 MG/DL (0.60-1.30) PE at Discharge Improved erythema and edema of the left ear GENERAL: This is a well-nourished, well-developed patient, in no apparent distress. CARDIOVASCULAR: Regular rate and rhythm without murmurs, gallops, or rubs. RESPIRATORY: Clear to auscultation. Breath sounds equal bilaterally. No wheezes , rales, or rhonchi. GASTROINTESTINAL: Abdomen soft, non-tender, nondistended. Normal active bowel sounds MUSCULOSKELETAL: Extremities without clubbing, cyanosis, or edema. NEURO: Alert & Oriented x4 to person, place, time, situation. Moves all ext x4 Pt update on day of discharge Patient doing well. No fevers or chills. Erythema and edema greatly improved dc plans discussed with patient and ID team. Hospital Course This 36-year-old gentleman with a left ear abscess and cellulitis. Cultures were positive for MRSA and was treated as well is throat.HehadanI& Ddoneatthebedsideandculturesweresent. The patient continued with medical management of new onset diabetes and hypertension. He also had diabetic education from the healthcare educator. Pt Condition on Discharge: Good Discharge Disposition: Discharge Home Discharge Time: > 30 minutes Discharge Instructions DIET: Follow Instructions for: Heart Healthy Diet, Diabetic Diet Activities you can perform: Regular-No Restrictions Follow up Referrals: Ear Nose Throat - 2 Weeks with thanh PCP Follow-up New Medications: Blood Glucose Monitoring W/Device (Glucocom Blood Glucose Mo W/Device) 1 Kit Kit KIT .ROUTE DIRECTED for Blood Sugar Management, #[address] (Doxycycline Hyclate DR) 100 Mg Tab 100 MG PO BID for Infection for 28 Days, #56 TAB 0 Refills Glipizide (Glipizide) 5 Mg Tab 5 MG PO DAILY for Blood Sugar Management, #30 TAB 0 Refills Take 30 minutes before a meal Metformin (Metformin) 500 Mg Tab 500 MG PO BIDPC for Blood Sugar Management, #60 TAB 0 Refills With meals Sulfamethoxazole-Trimethoprim (Bactrim DS) 800-160 Mg Tab 1 TAB PO BID for Infection, #28 TAB 0 Refills Carvedilol (Coreg) 6.25 Mg Tab 6.25 MG PO Q12HR for Blood Pressure Management, #62 TAB Losartan (Cozaar) 50 Mg Tab 50 MG PO Q12HR for Blood Pressure Management, #62 TAB Continued Medications: Acetaminophen (Tylenol) 325 Mg Tab 650 MG PO Q6H PRN for PAIN SCALE 1 TO 4, #20 TAB 0 Refills Discontinued Medications: Ciprofloxacin (Ciprofloxacin) 500 Mg Tab 500 MG PO BID for Infection for 7 Days, #14 TAB 0 Refills Methylprednisolone Dosepak (Medrol Dosepak) 4 Mg Dspk 4 MG PO DIRECTED, #1 DSPK 0 Refills Per Pharmacist direction Elsie Coyle MD Aug 14, 2017 08:38
[2017-08-14] MEDS: MUPIROCIN 2% OINT 22 GM TUBE TOPICAL SCH (08:44)
--- NOTE | 2017-08-14 08:53 | HHI.IDPN ---
Subjective Subjective Remarks Feels better Left side of face swelling improved. Left ear also feels better No fever No nausea, vomiting or diarrhea Antibiotics IV Vancomycin , Clindamycin Lines Peripheral IV line Past Medical History MRSA New Onset Diabetes mellitus Allergies: Coded Allergies: cat dander (Unverified Allergy, Severe, Itching, 08/10/17) Uncoded Allergies: [employer] ANT[employer] OINTMENT WITH PAIN RELIEF (Adverse Reaction, Severe, REDNESS & INFLAMMATION, 08/10/17) . SUN (Adverse Reaction, Unknown, HIVES, 08/10/17) . Review of Systems Constitutional Constitutional Remarks No fever, chills Objective . Vital Signs Date Time Temp Pulse Resp B/P (MAP) Pulse Ox O2 Delivery O2 Flow Rate FiO2 08/14/17 05:08 16 08/14/17 04:52 16 08/14/17 00:28 97.3 72 20 151/105 (120) 97 08/13/17 20:58 98.1 75 20 149/103 (118) 98 08/13/17 16:00 96.8 75 20 149/110 (123) 97 08/13/17 12:00 96.2 70 20 143/108 (120) 100 . Laboratory Tests Test 08/13/17 07:22 Creatinine 0.39 MG/DL Estimat Glomerular Filtration Rate 248 ML/MIN Physical Exam GENERAL: This is a obese patient, sitting up in bed SKIN: Erythematous left ear and drainage at back of ear is less HEAD: Left side of face and left posterior temporal area with swelling that has improved significantly EYES: Pupils equal round and reactive. Extraocular motions intact. No scleral icterus. No injection or drainage. ENT: Nose without bleeding, purulent drainage or septal hematoma. Throat without erythema, tonsillar hypertrophy or exudate. Uvula midline. Airway patent. Left ear with some swelling and redness and abscess in pinna that is draining posteriorly via multiple small openings- all is improved. NECK: Trachea midline. No JVD Left cervical lymphadenopathy and pre auricular lymph node. Supple, nontender, no meningeal signs. CARDIOVASCULAR: Regular rate and rhythm without murmurs, gallops, or rubs. RESPIRATORY: Clear to auscultation. Breath sounds equal bilaterally. No wheezes , rales, or rhonchi. GASTROINTESTINAL: Abdomen soft, non-tender, nondistended. No hepato-splenomegaly , or palpable masses. No guarding. MUSCULOSKELETAL: Extremities without clubbing, cyanosis, or edema. No joint tenderness, effusion, or edema noted. No calf tenderness. Negative Homans sign bilaterally. NEUROLOGICAL: Awake and alert. Cranial nerves II through XII intact. Motor and sensory grossly within normal limits. Five out of 5 muscle strength in all muscle groups. Normal speech. Assessment & Plan Diagnosis: (1) Abscess of left external ear ICD Codes: H60.02 - Abscess of left external ear Status: Acute Plan: S/p drainage Blood cultures are negative Patient can be changed to Bactrim DS po bid x 2 weeks Doxy 100 mg po bid x 2 weeks Follow up with me and PCP in 2 weeks (2) Cellulitis of left ear ICD Codes: H60.12 - Cellulitis of left external ear Status: Acute (3) Methicillin resistant Staphylococcus aureus infection ICD Codes: A49.02 - Methicillin resistant Staphylococcus aureus infection, unspecified site (4) New onset type 2 diabetes mellitus ICD Codes: E11.9 - Type 2 diabetes mellitus without complications Rachel Olmos MD Aug 14, 2017 08:53
== END 2017-08-14 12:10 | disposition home or self-care (01) | DRG 156 ==
LOC: PHED 10:55 → PHEDA 12:19 → PH3B 12:50
PROVIDERS: ADMIT Hospitalist; ATTEND Hospitalist
PROC: 0H93XZX Drainage of Left Ear Skin, External Approach, Diagnostic (ICD-10-PCS; principal; 2017-08-10)
DX: H60.02 Abscess of left external ear (principal); E11.65 Type 2 diabetes mellitus with hyperglycemia; I10 Essential (primary) hypertension; H60.12 Cellulitis of left external ear; Z86.14 Personal history of Methicillin resistant Staphylococcus aureus infection; B95.62 Methicillin resistant Staphylococcus aureus infection as the cause of diseases classified elsewhere
CPT/HCPCS: 80048; 80202; 82565; 82948; 83036; 83605; 85025; 86403; 87040; 87070; 87186; 87205; 93005; 96365; 96375; J1170; J1815; J1885; J2405; J3370; J7030; J7040; J7050